=== PATIENT | male | born 1970 | race Hispanic/Latino ===

== ENCOUNTER 2023-12-20 14:38 | Emergency (ER) | payer SELFPAY ==
[~2023-12-20] VITALS: Ht 165.1 cm; Wt 81.6 kg
[2023-12-20] VITALS (8 sets, daily range): BP systolic 127–148; BP diastolic 69–87
[2023-12-20] MEDS ORDERED: KETOROLAC TROMETHAMINE 30 MG/ML SDV IM ONE (15:00)
[2023-12-20] MEDS ORDERED: ACETAMINOPHEN 500 MG TAB PO ONE (15:00)
[2023-12-20] MEDS ORDERED: METHOCARBAMOL 500 MG/TAB PO ONE (15:55)
[2023-12-20] MEDS ORDERED: MORPHINE SULFATE 4 MG/ML VIAL IM ONE (15:55)
[2023-12-20] MEDS ORDERED: FLEXERIL5 M1 PO (17:22)
[2023-12-20] MEDS ORDERED: NAPROXEN500 MG PO (17:22)
== END 2023-12-20 17:35 | disposition home or self-care (01) | DRG 552 ==
LOC: ED 14:38
DX: M54.50 Low back pain, unspecified (principal)